=== PATIENT | male | born 2000 | race Caucasian/White ===

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

== ENCOUNTER 2021-04-10 11:21 | Outpatient (CLI) | payer MEDICAID, SELFPAY ==
--- NOTE | 2021-04-10 10:45 | DI.US_ITS ---
Exam(s) US SOFT TISSUE EXTREMITY EXAM: US SOFT TISSUE EXTREMITY CLINICAL HISTORY: ? cause swelling/mass, subcutaneous nodule rt lower leg, prepatellar swell. TECHNIQUE: Ultrasound was performed using standard protocol. COMPARISON: No exams were available for comparison FINDINGS: Sonographic assessment utilizing grayscale and color Doppler imaging was performed and targeted to th e area of clinical concern. In the ankle in the area of palpable abnormality there are 2 solid hypoechoic masses present. The la rgest measures 4.1 x 3.5 x 1.4 cm. There are echogenic foci internally. There is some vascularity. The smaller measures 1.8 x 3.4 x 1.4 cm and is immediately inferior. It is similar sonographic tony acteristics. There is edema seen in the soft tissues anterior to the knee. IMPRESSION: Two hypoechoic masses in the left ankle corresponding to the palpable abnormality. MRI of the ankle is recommended for further evaluation. DATA REPOSITORY:
== END 2021-04-10 11:41 ==
PROVIDERS: Visit Provider Nurse Practitioner Pediatrics
DX: M25.461 Effusion, right knee (principal); R22.41 Localized swelling, mass and lump, right lower limb
CPT/HCPCS: 76881

== ENCOUNTER 2021-04-12 03:08 | Outpatient (CLI) | payer MEDICAID, SELFPAY ==
--- NOTE | 2021-04-12 06:30 | DI.MRI_ITS ---
Exam(s) MR LOWER JOINT RT WO/W EXAM: MR LOWER JOINT RT WO/W CLINICAL HISTORY: SUBCUTANEOUS NODULE RT LOWER LEG,R22.41. TECHNIQUE: Multiplanar multisequence MRI Examination was performed. CONTRAST MATERIAL: IV Contrast: 18 mL of Dotarem contrast administered. COMPARISON: None. FINDINGS: BONES/JOINTS: No evidence of fracture. No evidence of bone lesion. There is normal marrow signal. MUSCULOTENDINOUS STRUCTURES: The visualized muscles show normal signal and size. SOFT TISSUES: There is a lobulated soft tissue mass in the subcutaneous tissues medial to the diaphys is of the tibia. It appears to be one continuous mass. It measures 2.3 cm transverse by 3.3 cm AP x 6 .6 cm craniocaudad. On the T2 weighted images it is homogeneously hyperintense. On the T1 weighted im ages is isointense to the muscle. Following contrast administration there is thin peripheral enhancem ent. It does not invade the adjacent musculature or involve the adjacent bone. No other soft tissue m asses are appreciated. OTHER FINDINGS: No other soft tissue mass or abnormal enhancement is appreciated. IMPRESSION: 1. 2.3 x 3.3 x 6.6 cm subcutaneous mass as described above. This corresponds to the palpable and ultr asound abnormality. Differential considerations include but are not limited to complex cyst, benign p eripheral nerve sheath, tumor epidermal inclusion cyst among other etiologies. 2. There is no involvement of the underlying bone or musculature. DATA REPOSITORY:
[2021-04-12] MEDS: Normal Saline Flush 10 ML SYR IVP (09:42)
[2021-04-12] MEDS: Gadoterate meglumine 20 ML VIAL 18 ML IVP (09:43)
== END 2021-04-12 03:28 ==
PROVIDERS: PCP Pediatrics; Visit Provider Nurse Practitioner Pediatrics
DX: R22.41 Localized swelling, mass and lump, right lower limb (principal)
CPT/HCPCS: 73723

== ENCOUNTER 2021-11-19 15:59 | Outpatient (REF) | payer MEDICAID, SELFPAY ==
[2021-11-19 12:42] LABS: Absolute Basophil Count 0.04 10^3/uL (0.0-0.2); Absolute Eosinophil Count 0.29 10^3/uL (0.0-0.7); Absolute Lymphocyte Count 1.42 10^3/uL (1.2-3.4); Absolute Monocyte Count 0.56 10^3/uL (0.1-0.8); Absolute Neutrophil Count 2.39 10^3/uL (1.2-6.7); Basophils % 0.9; Eosinophils % 6.2; HCT 46.8 % (40.0-50.0); HGB 15.8 g/dL (13.5-17.5); Lymphocytes % 30.2; MCHC 33.8 % (32.0-36.0); Monocytes % 11.9; Neutrophils % 50.8; Platelet Count 262 10^3/uL (130-400); RBC 5.44 10^6/uL (4.36-5.78); RDW 12.3 % (11.8-14.1); RDW-SD 38.6 fL
[2021-11-19 12:46] LABS: ESR 6 mm/hr (0-15)
[2021-11-19 12:49] LABS: ALT 49 U/L (16-63); AST 23 U/L (15-37); Albumin 4.3 g/dL (3.4-5.0); Alkaline Phosphatase 107 U/L (46-116); Anion Gap 5.9 mmol/L (3-11); BUN 18 mg/dL (7-18); Bilirubin, Total 0.8 mg/dL (0.2-1.0); CO2 30.1 mmol/L (21.0-32.0); CREATININE 0.9 mg/dL (0.70-1.30); Calcium 9.5 mg/dL (8.5-10.1); Chloride 101 mmol/L (98-107); Glucose 90 mg/dL (74-106); Potassium 4.8 mmol/L (3.5-5.1); Sodium 137 mmol/L (136-145); Total Protein 7.7 g/dL (6.4-8.2)
[2021-11-19 21:59] LABS: CRP, High Sensitivity 1.44 mg/L (See Note)
[2021-11-20 12:12] LABS: Lyme Ab w Rflx to Lyme Confirm Negative (Negative)
[2021-11-20 23:53] LABS: Anaplasma phagocytophilum Negative (Negative); B. miyamotoi PCR Negative (Negative); Babesia divergens/MO-1 Negative (Negative); Babesia duncani Negative (Negative); Babesia microti Negative (Negative); Ehrlichia chaffeensis Negative (Negative); Ehrlichia ewingii/canis Negative (Negative); Ehrlichia muris eauclairensis Negative (Negative)
[2021-11-21 00:06] LABS: COVID-19 RT-PCR UVMMC Result Negative (Negative)
== END 2021-11-19 16:00 | disposition home or self-care (01) ==
LOC: LBN 15:59
PROVIDERS: PCP Nurse Practitioner Family; Visit Provider Nurse Practitioner Family
DX: R51.9 Headache, unspecified (principal); Z20.822 Contact with and (suspected) exposure to COVID-19
CPT/HCPCS: 80053; 85652; 86141; 87798; U0003; 85025; 86618

== ENCOUNTER → 2021-11-21 02:19 | Outpatient (CLI) | payer MEDICAID, SELFPAY ==
--- NOTE | 2021-11-21 07:00 | DI.CT_ITS ---
Exam(s) CT HEAD WO/W EXAM: CT HEAD WO/W CLINICAL HISTORY: 3 MO H/O HEADACHE,H/O TESTICULAR CA,? MASS. TECHNIQUE: Imaging Protocol: Axial computed tomography images with coronal and sagittal reformatted images were created and reviewed Post contrast scanning was also performed following intravenous infusion of 100 cc of Omnipaque 350. COMPARISON: CT HEAD WITHOUT CONTRAST from 03/30/2013 FINDINGS: The ventricular system is normal in appearance. No evidence of acute intracranial hemorrhage, mass effect, or midline shift. There is no evidence of an intracranial mass lesion or enhancing lesion. The orbital structures are unremarkable. The temporal bone structures appear intact. Calvarium: Normal. Visualized Paranasal sinuses/Mastoids: Clear. IMPRESSION: Normal cranial CT. No evidence of intracranial metastatic disease. RADIATION DOSE DELIVERED: 1,325.44mGy.cm Total DLP 1,325.44mGy.cm Total DLP !Error CTDIvol DATA REPOSITORY: All CT scans at this facility are submitted to the National Radiology Data Registry (NRDR) Dose Index Registry (DIR) with the [employer] ([employer]). RADIATION OPTIMIZATION: All CT scans at this facility use at least one of these dose optimization te chniques: automated exposure control; mA and/or kV adjustment per patient size (includes targeted exa ms where dose is matched to clinical indication); or iterative reconstruction.
[2021-11-21] MEDS: Omnipaque 350 MG/ML 100 ML BTL IJ (10:16)
== END ==
PROVIDERS: Visit Provider Nurse Practitioner Family
DX: R51.9 Headache, unspecified (principal); Z85.47 Personal history of malignant neoplasm of testis
CPT/HCPCS: 70470; J3490

== ENCOUNTER → 2022-07-14 01:52 | Outpatient (CLI) | payer MEDICAID, SELFPAY ==
--- NOTE | 2022-07-14 | DI.CT_ITS ---
Exam(s) CT ABDOMEN PELVIS WO/W EXAM: CT ABDOMEN PELVIS WO/W TECHNIQUE: Imaging Protocol: Axial computed tomography images with coronal and sagittal reformatted images were created and reviewed. Images were performed from the lung bases through the ischial tuberosities before IV contrast and fol lowing IV contrast using a 70 second delay, followed by 7 minutes delayed images. CONTRAST MATERIAL: Intravenous: Omnipaque 350 Contrast volume:100 cc Oral: no COMPARISON: MR MRI ABDOMEN AND PELVIS WWO CONTRAST from 04/29/2021 FINDINGS: ABDOMEN: Lung Bases: Normal where visualized. Liver: Normal density. No measurable mass. Gallbladder and biliary tract: No radiodense calculus or dilation. Pancreas: Normal density, no abnormal calcifications or inflammatory process. Spleen: Normal. Kidneys: Normal size, contour and axis. No radiodense stones or obstructive uropathy. No suspicious m asses seen. Adrenal glands: No masses seen. Lymph nodes: Within normal limits. Abdominal Aorta: Abdominal portion non-dilated. Soft tissues: Unremarkable. PELVIS: Bladder: No gross wall thickening. No evidence of a mass.No evidence of calculi. Bowel: No obstruction or bowel wall thickening. Large quantity of stool in rectum. Peritoneal cavity: No ascites, collection or mesenteric inflammatory response. Soft tissues: Bones: Unremarkable for age.. Reproductive organs: Prosthetic left testicle noted IMPRESSION: No evidence of metastatic disease. RADIATION DOSE DELIVERED: Total DLP DATA REPOSITORY: All CT scans at this facility are submitted to the National Radiology Data Registry (NRDR) Dose Index Registry (DIR) with the [employer] ([employer]). RADIATION OPTIMIZATION: All CT scans at this facility use at least one of these dose optimization te chniques: automated exposure control; mA and/or kV adjustment per patient size (includes targeted exa ms where dose is matched to clinical indication); or iterative reconstruction.
[2022-07-14] MEDS: Normal Saline - Diluent 50 ML VIAL IJ ×2 (15:50→15:51)
[2022-07-14] MEDS: Normal Saline Flush 10 ML SYR IVP (15:50)
[2022-07-14] MEDS: Omnipaque 350 MG/ML 100 ML BTL IJ (15:50)
== END ==
PROVIDERS: Visit Provider Surgery
DX: C62.92 Malignant neoplasm of left testis, unspecified whether descended or undescended (principal); Z12.89 Encounter for screening for malignant neoplasm of other sites
CPT/HCPCS: 74178; J3490

== ENCOUNTER 2024-11-05 18:40 | Outpatient (CLI) | payer MEDICAID, SELFPAY ==
--- NOTE | 2024-11-05 18:30 | DI.RAD_ITS ---
Exam(s) XR HAND RT COMPLETE EXAM: XR HAND RT COMPLETE CLINICAL HISTORY: 4th/5th metacarpals. TECHNIQUE: 2D digital imaging was performed. Three views. COMPARISON: No exams were available for comparison FINDINGS: BONES: No acute fracture is present. No bony destructive lesion is seen. JOINTS: No dislocation present. SOFT TISSUE: Normal. IMPRESSION: Unremarkable radiographs of the right hand. DATA REPOSITORY: RADIATION DOSE DELIVERED:
--- NOTE | 2024-11-05 20:23 | DI.VRAD_ITS ---
PROCEDURE INFORMATION: Exam: XR Right Hand Exam date and time: 11/05/2024 7:17 PM Age: 24 years old Clinical indication: Other: 4th/5th metacarpals TECHNIQUE: Imaging protocol: Radiologic exam of the right hand. Views: 3 or more views. COMPARISON: US SOFT TISSUE EXTREMITY 04/10/2021 2:12 PM FINDINGS: Bones/joints: Normal. Soft tissues: Normal. IMPRESSION: No acute findings. Dictated and Authenticated by: Tarik Brown MD. Orderin Corey Aggarwal MD
== END 2024-11-05 19:00 ==
PROVIDERS: PCP Nurse Practitioner Family; Visit Provider Nurse Practitioner Family
DX: M79.641 Pain in right hand (principal)
CPT/HCPCS: 73130